=== PATIENT | male | born 1960 | race Caucasian/White ===

== ENCOUNTER 2025-03-15 17:48 | Outpatient (REF) | payer MEDICARE, SELFPAY ==
--- OUTSIDE RECORDS SUMMARY | 2023-02-23 07:15 | XMS_ITS | Continuity of Care Document ---
Author Organization [facility] Address [address] [place] [address] Phone Care Team Providers Care Cake Maker Name Role Phone Shikha Chester DDS Unavailable Unavailable Allergies, Adverse Reactions, Alerts Substance Reaction Status Criticality Penicillins Active No Information Medications Medication Instructions Dosage Effective Dates (start - stop) Status Comments Depakote 500 mg tablet,delayed release take 1 tablet by oral route 2 times every day 500 MG - Active Risperdal 4 mg tablet take 1 tablet by o ral route 2 times every day 4 MG - Active Bentyl 10 mg/mL intramuscular solution inject 2 milliliter by intramuscular route 4 times every day - Active Procedures Procedure Date Prophylaxis Adult Nutrit Couns For Control Of [place] Dis Jan Tobacco Counseling Oral Hygiene Instruction Resin Two Surfaces Anterior Resin Two Surfaces Anterior Resin Composite 2s; Posterior 3 Resin Composite 2s; Posterior Oral Hygiene Instruction Oral Hygiene Instruction Resin Composite 1s; Posterior 3 Comp Oral Eval New/estab Patient 2022 Advance Directives Directive Yes / No Effective Date File Name No Information Encounters Encounter Description Practice Location Reason(s) For Visit Diagnoses Date Provider Providers Copied on Encounter [facility], [address], [place], [id number], tel:[phone] [facility] [place] (chief complaint) Encounter for screening for dental disorders Henrik Trivedi. . tel:[phone] [facility], [address], [place], [id number], [place] tel:[phone] [facility] nilsa (chief complaint) Encounter for screening for dental disorders Henrik Guzman. [address], [place], [id number], [place]. tel:[phone] [facility], [address], [place], [id number], [place] tel:[phone] Dental Clinic fill (chief complaint) Encounter for screening for dental disorders Henrik Guzman. [address], [place], [id number], [place]. tel:[phone] [facility], [address], [place], [id number], [place] tel:[phone] [facility] Fill (chief complaint) Encounter for screening for dental disorders Henrik Guzman. [address], [place], [id number], [place]. tel:[phone] [facility], [address], [place], [id number], [place] tel:[phone] [facility] NILSA (chief complaint) Encounter for screening for dental disorders Yury BROCKBrandon Angel. [address] [place], [address], [place]. tel:[phone] [facility], [address], [place], [id number], [place] tel:[phone] [facility] nilsa (chief complaint) Encounter for screening for dental disorders Henrik Guzman. [address], [place], [id number], [place]. tel:[phone] Family History Family Member Type Diagnosis Age At Onset No Information Payers Payer name Insurance type Covered green party ID Authoriza tion(s) No Information Social History Type Description Quantity Date Captured Comments Alcohol Use Details Unknown Caffeine Use Details Unknown Tobacco Use Status Cigarette smoker Smoking Status Current every day smoker Smoking Tobacco Use Details Cigarette: No Details Available Cigarette: No Details Available Sex Male Sexual Orientation Straight or heterosexual Gender Identity Male Vital Signs Date / Time: Height Weight BMI Pulse Rate Blood Pressure Temperature Respiratory Rate Body Surface Area Head Circumference Head Circ. Percentile Wt./Krunal. Percentile BMI percentile Pulse Ox Inhaled Ox 11:39 AM 75 /min 156/79 mm[Hg] 97.10 F Chief Complaint And Reason For Visit From encounter dated '02/23/2023 11:15'. PA (chief complaint). Description: PA Reason For Referral Reason For Referral No Information Plan Of Treatment Date Type Action Status Goal FOBT. Due on due Goal Colonoscopy. Due on due Goal Hep A. Due on du e Goal Tdap. Due on due Goal Lipid panel. Due on 023 due Goal Zoster vaccine (1st). Due on due Goal Tdap Vaccine. Due on 2022 due Goal PRAPARE ASSESSMENT. Due on due Goal Depression screening. Due on due Goal Influenza vaccine. Due on due Goal Hep A. Due on du e Goal Lipid panel. Due on due Goal Zoster vaccine (1st). Due on due Goal Colonoscopy. Due on due Goal PRAPARE ASSESSMENT. Due on due Goal Tdap Vaccine. Due on 2022 due Goal Tdap. Due on due Goal Influenza vaccine. Due on Ju due Goal FOBT. Due on due Goal Depression screening. Due on due Goal PRAPARE ASSESSMENT. Due on due Goal Lipid panel. Due on due Goal Zoster vaccine (1st). Due on due Goal Colonoscopy. Due on due Goal Tdap. Due on due Goal Influenza vaccine. Due on due Goal FOBT. Due on due Goal Tdap Vaccine. Due on 2022 due Goal Depression screening. Due on due Goal Lipid panel. Due on due Goal Depression screening. Due on due Goal Tdap Vaccine. Due on 2022 due Goal Colonoscopy. Due on due Goal PRAPARE ASSESSMENT. Due on due Goal Tdap. Due on due Goal Zoster vaccine (1st). Due on due Goal FOBT. Due on due Goal Influenza vaccine. Due on due Goal Hep A. Due on du e Goal Depression screening. Due on due Goal Tdap. Due on due Goal Zoster vaccine (1st). Due on due Goal Tdap Vaccine. Due on 2022 due Goal Influenza vaccine. Due on Ap due Goal FOBT. Due on due Goal Lipid panel. Due on due Goal Colonoscopy. Due on due Goal PRAPARE ASSESSMENT. Due on A due Goal PRAPARE ASSESSMENT. Due on F due Goal Colonoscopy. Due on due Goal Lipid panel. Due on due Goal FOBT. Due on due Goal Influenza vaccine. Due on due Goal Tdap Vaccine. Due on 2022 due Goal Hep A. Due on du e Goal Zoster vaccine (). Due on due Goal Tdap. Due on due Goal Depression screening. Due on due History Of Present Illness Encounter Date Complaint History Of Prese nt Illness [facility] nilsa nilsa fill fill Fill NILSA NILSA nilsa nilsa Functional Status Date Functional Assessmen t No Information Instructions Date Instruction Additional Infor mation No Information Assessments Type Assessment Date No Information Patient Care Teams Name Effective Dates (start - stop) Status Members No Information
--- OUTSIDE RECORDS SUMMARY | 2025-03-15 17:53 | XMS_ITS | Encounter Summary ---
Author Organization [facility] Address [address] [place] [address] Care Team Providers Care Policy Advisor Name Role Phone Jamie Scott DO Primary Care Provider Encounter Details Date Type Department Care Team (Late st Contact Info) Description 01/20/2023 Abstract [facility] [address] [place] [address] Abbe Ddod MD [address] [facility] [address] [place] [address] Social History Tobacco Use Types Packs/Day Years Used Date Smoking Tobacco: Every Day Cigarettes Smokeless Tobacco: Never Tobacco Cessation:Ready to Q uit: Not Asked; Counseling Given: Not Answered Alcohol Use Standard Drinks/Week Comments Never 0 (1 standard drink = 0.6 oz pure alcohol) Caffeine intake: 3-4 cups per day Sex and Gender Information Value Date Recorded Sex Assigned at Not on file Legal Sex Male 8:23 PM EDT Gender Identity Not on file Sexual Orientation Not on file documented as of this encounter Plan of Treatment Not on file documented as of this encounter Visit Diagnoses Not on filedocumented in this encounter Care Teams Policy Advisor Relationship Specialty Start Date End Date Jamie Scott DO [address] [place] [address] PCP - General Internal Medicine 01/17/23 documented as of this encounter
[2025-03-15 18:24] LABS: Hematocrit 30.9 % (42.0-54.0); Hemoglobin 9.9 g/dL (14.0-18.0); Immature Granulocytes Abs Auto 0.15 10^3/uL (0.00-0.03); Immature Granulocytes Pct Auto 1.5 % (0.0-0.5); Lymphocytes Absolute Auto 1.9 10^3/uL (1.2-3.8); Mean Corpuscular HGB Conc 32.0 g/dL (29.9-35.2); Mean Corpuscular Hemoglobin 30.9 pg (25.9-34.0); Mean Corpuscular Volume 96.6 fL (80.0-94.0); Platelet Count 494 10^3/uL (150-450); Red Blood Count 3.20 10^6/uL (4.70-6.10); White Blood Count 10.3 10^3/uL (4.0-11.0)
== END 2025-03-15 17:49 | disposition home or self-care (01) ==
LOC: LAB 17:48
PROVIDERS: PCP Internal Medicine; Visit Provider Internal Medicine
DX: R79.89 Other specified abnormal findings of blood chemistry (principal)
CPT/HCPCS: 36415; 85025